=== PATIENT | male | born 1980 | race Caucasian/White ===

== ENCOUNTER 2017-08-23 09:08 | Day surgery (SDC) | payer BC ==
[~2017-08-23 09:08] MED LIST: Lactated Ringers 1,000 ML IV SCH; Lidocaine 1%/Sod Bicarbonate in NS 8.4% 1 ML Syringe PRN; Sodium Chloride 0.9% 10 ML Syringe FLUSH PRN
--- NOTE | 2017-08-23 10:05 | PCM.PREANE ---
Preanesthetic Assessment - Procedure Proposed Procedure: L tibial hardware removal - Anesthesia/Transfusion/Family Hx Anesthesia History: Prior Anesthesia Without Reaction Family History of Anesthesia Reaction: No Transfusion History: No Prior Transfusion(s) - Review of Systems General: No Symptoms Pulmonary: No Symptoms Cardiovascular: Other (HTN, HLD) Gastrointestinal: Other (GERD, controlled with omprazole, currently does not have heart burn) Neurological: No Symptoms Other: Reports: None - Physical Assessment NPO Status Date: 08/22/17 NPO Status Time: 21:30 O2 Sat by Pulse Oximetry: 97 Respiratory Rate: 20 Vital Signs: Last Vital Signs Temp 37.0 C 08/23/17 09:15 Pulse Resp 20 08/23/17 09:15 BP 135/85 08/23/17 09:15 Pulse Ox 97 08/23/17 09:15 Height: 1.73 m Weight: 109.769 kg ASA Class: 2 Mental Status: Alert & Oriented x3 Airway Class: Mallampati = 1 Dentition: Reports: Normal Dentition Thyro-Mental Finger Breadths: 3 Mouth Opening Finger Breadths: 3 ROM/Head Extension: Full Lungs: Clear to Auscultation, Normal Respiratory Effort Cardiovascular: Regular Rate, Regular Rhythm - Lab Values: Laboratory Last Values MRSA (PCR) Negative 08/15/17 13:47 - Allergies Allergies/Adverse Reactions: Allergies Allergy/AdvReac Type Severity Reaction Status Date / Time No Known Allergies Allergy Verified 08/23/17 09:42 - Blood Blood Available: No Product(s) Available: None - Anesthesia Plan Pre-Op Medication Ordered: None - Acknowledgements Anesthesia Type Planned: General Anesthesia, Regional Block (femoral block discussed with the patient if an ACL reconstruction is done ) Pt an Appropriate Candidate for the Planned Anesthesia: Yes Alternatives and Risks of Anesthesia Discussed w Pt/Guardian: Yes Pt/Guardian Understands and Agrees with Anesthesia Plan: Yes PreAnesthesia Questionnaire HEENT History: Reports: Other (See Below) Other HEENT History: dysphagia Cardiovascular History: Reports: High Cholesterol, Hypertension Respiratory History: Reports: None Gastrointestinal History: Reports: Gastritis Other Gastrointestinal History: duodenitis, gastric polyps Genitourinary History: Reports: None ENTERER History: Reports: None Musculoskeletal History: Reports: Other (See Below) Other Musculoskeletal History: left knee pain, tib/fib fracture with hardware Neurological History: Reports: None Psychiatric History: Reports: None Endocrine/Metabolic History: Reports: None Hematologic History: Reports: None Immunologic History: Reports: None Oncologic (Cancer) History: Reports: None Dermatologic History: Reports: None - Past Surgical History Cardiovascular Surgical History: Reports: None Respiratory Surgical History: Reports: None GI Surgical History: Reports: Colonoscopy, EGD Female Surgical History: Reports: None Male Surgical History: Reports: None Endocrine Surgical History: Reports: None Neurological Surgical History: Reports: None Dermatological Surgical History: Reports: None - SUBSTANCE USE Smoking Status *Q: Former Smoker Recreational Drug Use History: No - HOME MEDS Home Medications: Home Meds Fish Oil/[place]-3 Fatty Acids [Fish Oil 1,000 MG] 1 gm PO DAILY 08/22/17 [History ] Ibuprofen 400 mg PO Q6H PRN 08/22/17 [History] Lisinopril/Hydrochlorothiazide [Lisinopril-Hctz 20-25 mg Tab] 1 tab PO DAILY [History] Mesalamine [Pentasa] 1,000 mg PO BID 08/22/17 [History] Multivitamin [Daily Bisi] 1 tab PO DAILY 08/22/17 [History] Omeprazole 20 mg PO DAILY 08/22/17 [History] Rosuvastatin Calcium [Rosuvastatin Calcium] 10 mg PO DAILY 08/22/17 [History] Acetaminophen/HYDROcodone [Kincaid 325-5 MG] 1 - 2 tab PO Q6H PRN #40 tablet 08/23 [Rx] Aspirin 325 mg PO BID #84 tablet 08/23/17 [Rx] Cyclobenzaprine [Flexeril] 10 mg PO Q8H PRN #40 tablet 08/23/17 [Rx] - CURRENT (IN HOUSE) MEDS Current Meds: Current Medications Lactated Ringer's (Ringers, Lactated) 1,000 mls @ 125 mls/hr IV ASDIRECTED EPHRAIM Stop: 08/23/17 23:00 Last Admin: 08/23/17 09:25 Dose: 125 mls/hr Lidocaine/Sodium Bicarbonate (Buffered Lidocaine 1% In Ns 8.4%) 0.25 ml .XX ONETIME PRN PRN Reason: Prior to IV Start Stop: 08/23/17 18:00 Last Admin: 08/23/17 09:24 Dose: 0.25 ml Sodium Chloride (Saline Flush) 10 ml FLUSH ASDIRECTED PRN PRN Reason: Keep Vein Open Stop: 08/23/17 18:00
[2017-08-23] MEDS ORDERED: Midazolam 1 MG/ML 2 ML SDV ONE (10:30)
[2017-08-23] MEDS ORDERED: Propofol 200 MG/20 ML SDV ONE (10:30)
[2017-08-23] MEDS ORDERED: fentaNYL 250 MCG/5 ML SDV ONE (10:30)
[2017-08-23] MEDS ORDERED: Bupivacaine 0.25% 30 ML SDV ONE (10:31)
[2017-08-23] MEDS ORDERED: EPINEPHrine 1 MG/ML 30 ML MDV ONE (10:31)
[2017-08-23] MEDS ORDERED: Ondansetron 4 MG/2 ML SDV ONE (10:32)
[2017-08-23] MEDS ORDERED: Lidocaine 1% 4 ML ONE (10:32)
[2017-08-23] MEDS ORDERED: Dexamethasone 4 MG/ML SDV ONE (10:32)
[2017-08-23] MEDS ORDERED: HYDROmorphone 1 MG/ML Syringe ONE (11:39)
[2017-08-23] MEDS ORDERED: fentaNYL 100 MCG/2 ML SDV ONE (11:39)
[2017-08-23] MEDS ORDERED: Lactated Ringers 1,000 ML ONE (11:50)
--- NOTE | 2017-08-23 12:10 | PCM.POSTAN ---
POST ANESTHESIA ASSESSMENT - MENTAL STATUS Mental Status: Alert, Oriented - VITAL SIGNS Pulse Rate: 90 SaO2: 95 Resp Rate: 14 Blood Pressure: 137/72 Temperature: 37.7 C - RESPIRATORY Respiratory Status: Respiratory Rate WNL, Airway Patent, O2 Saturation Stable, Supplemental Oxygen - CARDIOVASCULAR CV Status: Pulse Rate WNL, Blood Pressure Stable - GASTROINTESTINAL GI Status: No Symptoms - PAIN Pain Score: 0 - POST OP HYDRATION Hydration Status: Adequate & Stable
[2017-08-23] MEDS ORDERED: Meperidine PF 50 MG/ML Syringe IVPUSH PRN (12:15)
[2017-08-23] MEDS ORDERED: fentaNYL 100 MCG/2 ML SDV IVPUSH PRN (12:15)
[2017-08-23] MEDS ORDERED: Ondansetron 4 MG/2 ML SDV IVPUSH PRN (12:15)
[2017-08-23] MEDS ORDERED: HYDROmorphone 0.5 MG/0.5 ML Syringe IVPUSH PRN (12:15)
[2017-08-23] MEDS ORDERED: diphenhydrAMINE 50 MG/ML SDV IVPUSH PRN (12:15)
[2017-08-23 13:12] VITALS: BP 128/74
--- NOTE | 2017-08-24 11:14 | CR ---
Left tibia: Two fluoroscopic spot views were obtained of the proximal left tibia. Study shows removal of screws affixing previous intramedullary anil. Fluoroscopy time given as 16.7 seconds. Impression: 1. Operative study as described above. Diagnostic code #2
--- NOTE | 2017-08-28 17:51 | PCM.OPNOTE ---
- General Post-Op/Procedure Note Date of Surgery/Procedure: 08/23/17 Operative Procedure(s): left knee deep hardware removal with knee video arthroscopy with fat pad and plica resection Pre Op Diagnosis: left knee painful hardware and anterior knee pain Post-Op Diagnosis: Same Anesthesia Technique: General LMA, Local Primary Surgeon: Luis Quiroz Anesthesia Provider: Arturo Thacker Cartographic Aide: Kaylee Reeder in mLs: 5 Complications: None Condition: Good
--- NOTE | 2017-08-28 18:20 | OR ---
DATE OF OPERATION: 08/23/2017 SURGEON: Luis Quiroz MD OPERATION PERFORMED: Left knee deep hardware removal with knee video arthroscopy with fat pad and plica resection. PREOPERATIVE DIAGNOSIS: Left knee painful hardware and anterior knee pain. POSTOPERATIVE DIAGNOSIS: Left knee painful hardware and anterior knee pain. ANESTHESIA: General LMA with local. ANESTHESIA PROVIDER: Arturo Thacker. LOAN SERVICING OFFICER: Kaylee Reeder PA-C. ESTIMATED BLOOD LOSS: Less than 5 mL. COMPLICATIONS: None. CONDITION: Stable. DESCRIPTION OF PROCEDURE: The patient was identified in the preoperative holding area. Proper site was marked and identified by the surgeon. The patient was taken back to the operating theater where after adequate anesthesia, the patient's right lower extremity was placed in a well leg kwok. The patient was placed supine on a radiolucent table. The left lower extremity had a nonsterile tourniquet applied and then was sterilely prepped and draped in the usual sterile fashion. OR time- out was performed. The patient received 2 g of IV Ancef. The left lower extremity was then exsanguinated. Tourniquet was insufflated to 300 mmHg. Standard anterolateral portal was made. The patient's knee flexed to 90 degrees. Scope trocar was introduced. 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 There were no loose or foreign bodies noted. The patient had no loose foreign bodies in the mediolateral gutter. The patient was noted to have a large plica on the medial side as well as significant overgrowth of the anterior fat pad. Attention was turned to the medial compartment. Anterior medial portal was created with the use of spinal needle. The scope trocar was then used for visualization in the medial compartment. There was noted to be no medial meniscus tear or chondromalacia of the medial compartment and intact ACL on the notch. The inter meniscal ligament appeared to remain intact. The lateral compartment showed no signs of lateral chondromalacia or meniscus tear. At this time, the anterior fat pad was resected so that would not pinch in the patellar femoral joint and the large medial plica was resected. At this time, all excess saline was drained from the knee and attention was turned to removal of the proximal screws. With the use of C-arm fluoroscopy, incision was made on the medial portion just near the previous incision for the medial screw. Blunt dissection was taken down at the screw and the screwdriver was used for removal of the medial screw. In similar fashion, the proximal lateral screw was also removed. The patient did not have any pain distally into the distal screws, so we did leave them at this time, and the patient did not want the nail removed as it would be significantly and at this time, excess saline was irrigated through the wound. A 2-0 Vicryl was used subcutaneously and Monocryl was used for the skin. The patient tolerated the procedure well after sterile soft dressing was applied and sent to PACU in stable condition. MMODAL /[id number]
== END 2017-08-23 13:55 | disposition home or self-care (01) ==
LOC: JD.SDS 09:08
PROVIDERS: ATTEND Orthopaedic Surgery
DX: T84.84XA Pain due to internal orthopedic prosthetic devices, implants and grafts, initial encounter (principal); M22.42 Chondromalacia patellae, left knee; M67.52 Plica syndrome, left knee; M79.4 Hypertrophy of (infrapatellar) fat pad; K90.0 Celiac disease; E78.00 Pure hypercholesterolemia, unspecified; I10 Essential (primary) hypertension; Z98.890 Other specified postprocedural states; Z79.899 Other long term (current) drug therapy; Z87.891 Personal history of nicotine dependence
CPT/HCPCS: 20680; 29875; 76000; 87641; J0171; J1100; J1170; J2250; J2405; J3010; J3490; J7120; 01480; J2704

== ENCOUNTER 2022-04-13 21:37 | Emergency (ER) | payer BC, OTHER ==
[2022-04-13 21:52] VITALS: BP 175/85; PULSE 71
[2022-04-13] MEDS ORDERED: Fluorescein 1 MG Ophth Strip EYERT ONE (22:14)
[2022-04-13] MEDS ORDERED: prednisoLONE Acetate 1% Ophth Susp 5 ML Bottle EYERT ONE (23:15)
[2022-04-14] MEDS ORDERED: prednisoLONE Acetate 1% Ophth Susp 5 ML Bottle EYERT SCH (09:00)
== END 2022-04-13 23:30 | disposition home or self-care (01) ==
LOC: JD.ED 21:37
DX: H21.01 Hyphema, right eye (principal); E78.00 Pure hypercholesterolemia, unspecified; I10 Essential (primary) hypertension; Z79.899 Other long term (current) drug therapy; Z79.82 Long term (current) use of aspirin
CPT/HCPCS: 99283; A9270